=== PATIENT | female | born 1960 | race Caucasian/White ===

== ENCOUNTER 2019-01-25 07:25 | Day surgery (SDC) | payer BC, MEDICARE ==
[~2019-01-25 07:25] MED LIST: ACETAMINOPHEN 1,000 MG/100 ML BTL IVPB ONE; CEFAZOLIN 1 Gram 1 GM/50 ML BAG IVPB ONE; CEFAZOLIN 1G VIAL IVP ONE; CEFAZOLIN 2 Gram 2 GM/50 ML BAG IVPB ONE; FAMOTIDINE 20MG TABLET PO ONE; MECLIZINE 25 MG TABLET PO ONE; METOCLOPRAMIDE 10 MG TABLET PO ONE; WATER STERILE FOR INJECTION 20 ML VIAL MC ONE
[2019-01-25] MEDS ORDERED: KETAMINE HCL 100MG/1ML VIAL INJ ONE (07:26)
[2019-01-25] MEDS ORDERED: PROPOFOL 10 MG/ML VIAL IV ONE (07:26)
[2019-01-25] MEDS ORDERED: LIDOCAINE 2% MDV (20MG/ML) 20ML VIAL IV ONE (07:26)
[2019-01-25] MEDS ORDERED: DEXMEDETOMIDINE HCL 200 MCG/2 ML VIAL IV ONE (07:26)
[2019-01-25] MEDS ORDERED: LABETALOL HCL 5MG/ML, 20ML VIAL IV ONE (07:26)
[2019-01-25] MEDS ORDERED: GLYCOPYRROLATE 0.2 MG/ML ML IV ONE (07:26)
[2019-01-25] MEDS ORDERED: MIDAZOLAM HCL 2MG/2ML VIAL IV ONE (07:26)
[2019-01-25] MEDS ORDERED: HYDROMORPHONE PF 2MG/ML AMP 8 MG in 0.9 % SODIUM CHLORIDE 500ML 496 ML IV ONE (08:15)
[2019-01-25] MEDS ORDERED: HYDROMORPHONE PF 2MG/ML AMP 0.008 MG in 0.9 % SODIUM CHLORIDE 10ML VIA 0.996 ML IV ONE ×4 (08:15)
--- NOTE | 2019-01-25 08:27 | History and Physical - [place] ---
CHIEF COMPLAINT/HISTORY OF CHIEF COMPLAINT: This patient presents today with a history of a post lumbar laminectomy radiculopathy. Due to the failure of all therapies the patient presents today for an implanted spinal catheter infusion trial with Hydromorphone to determine if the implantation of a permanent pump would be of any value in pain control. PAST MEDICAL HISTORY: Hypertension and chronic pulmonary disease. PAST SURGICAL HISTORY: Bilateral knee replacement, shoulder surgery, lumbar spinal surgery, and foot surgery. MEDICATIONS ON ADMISSION: List to be provided. ALLERGIES: None. FAMILY/PSYCHOSOCIAL HISTORY: Social history - Noncontributory. Family history - Diabetes and coronary artery disease. SYSTEMS REVIEW: The patient is appropriate in no acute distress. The remainder of the systems review is positive for degenerative arthritis. PHYSICAL EXAMINATION: Height is not known and weight is estimated to be 250. Vital signs - Not available. HEENT: Within normal limits. LUNGS: Clear. HEART: Rapid and regular. ABDOMEN: Nontender. MUSCULOSKELETAL: Examination of the musculoskeletal system shows diffuse tenderness throughout the lumbar spine. Range of motion does produce pain moving into both lower extremities. There is pain extending into both legs. No motor or sensory abnormalities. NEUROLOGIC: Cranial nerves are intact. 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 PLAN: The patient is here for a implanted spinal catheter infusion trial of Hydromorphone to determine if the implantation of a permanent system can be of any value in pain control. The potential risks, side effects, and complications have all been carefully reviewed and discussed, the patient understands nerve root paralysis and spinal cord injury, and understands an epidural blood patch will be performed after the procedure to help prevent spinal headache, this will require laying flat for four, slowly elevated for one although we recommend an overnight stay, an outpatient status can be considered. She has been placed in contact with a clinical specialist from [facility] who has completely reviewed and discussed this procedure in detail. All questions were answered. JOB NUMBER: [id number] MTDD
[2019-01-25] MEDS ORDERED: RINGERS SOLUTION,LACTATED 1,000 ML IV ONE ×2 (08:30→10:14)
[2019-01-25] MEDS ORDERED: LIDOCAINE 1% W/EPI 1:100,000 MDV 20 ML VIAL SQ ONE ×2 (09:39)
[2019-01-25] MEDS ORDERED: BUPIVACAINE 0.5% W/EPI MPF 30 ML VIAL SQ ONE ×2 (09:39)
[2019-01-25] MEDS ORDERED: CEFAZOLIN 0.5 G in 0.9 % SODIUM CHLORIDE 1000ML 500 ML IVPB ONE (09:41)
[2019-01-25] MEDS ORDERED: CAFFEINE/SODIUM BENZOATE 250MG 500 MG in 0.9 % SODIUM CHLORIDE 100ML 100 ML IVPB ONE (11:21)
[2019-01-25] MEDS ORDERED: DIPHENHYDRAMINE HCL 50 MG/ML VIAL IVP PRN ×2 (11:30)
[2019-01-25] MEDS ORDERED: ACETAMINOPHEN 325 MG TAB PO PRN ×2 (11:30)
[2019-01-25] MEDS ORDERED: SENNOSIDES/DOCUSATE SODIUM UD CAPSULE PO PRN ×2 (11:30)
[2019-01-25] MEDS ORDERED: METOCLOPRAMIDE HCL 10 MG/2 ML VIAL IVP PRN (11:30)
[2019-01-25] MEDS ORDERED: HYDROMORPHONE HCL 2 MG/ML VIAL IM PRN ×2 (11:30)
[2019-01-25] MEDS ORDERED: METOCLOPRAMIDE 10 MG TABLET PO PRN (11:30)
[2019-01-25] MEDS ORDERED: HYDROCODONE/APAP 7.5/325MG TABLET PO PRN ×2 (11:30)
[2019-01-25] MEDS ORDERED: AL HYDROX/MAG HYDROX 30ML UD PO PRN (11:30)
[2019-01-25] MEDS ORDERED: TEMAZEPAM 15 MG CAPSULE PO PRN ×2 (11:30)
[2019-01-25] MEDS ORDERED: OXYCODONE/APAP 10MG-325MG TABLET PO PRN (11:30)
[2019-01-25] MEDS ORDERED: DIPHENHYDRAMINE HCL 25 MG CAPSULE PO PRN ×2 (11:30)
[2019-01-25] MEDS: RINGERS SOLUTION,LACTATED 1,000 ML IV SCH (13:38)
[2019-01-25] MEDS: OXYCODONE/APAP 10MG-325MG TABLET PO PRN ×3 (15:22→23:18)
[2019-01-25] MEDS: CEFAZOLIN 1G VIAL IVP SCH (17:12)
[2019-01-25] MEDS ORDERED: ROPINIROLE HCL 1 MG TABLET PO SCH (22:00)
[2019-01-26] MEDS: CEFAZOLIN 1G VIAL IVP SCH (01:09)
[2019-01-26] MEDS: OXYCODONE/APAP 10MG-325MG TABLET PO PRN (03:53)
[2019-01-26] MEDS ORDERED: PANTOPRAZOLE SODIUM 40 MG TABLET PO SCH (07:00)
[2019-01-26] MEDS ORDERED: CALCIUM CARBONATE 500 MG TAB.CHEW PO PRN (07:30)
[2019-01-26] MEDS: NALOXONE 0.4 MG/1 ML VIAL IVP PRN ×2 (08:12→10:07)
[2019-01-26] MEDS ORDERED: NALOXONE HCL 1 MG/ML SYR IVP ONE ×4 (08:14→09:05)
[2019-01-26] MEDS ORDERED: ONDANSETRON HCL IV 4 MG/2 ML VIAL IVP ONE (08:54)
[2019-01-26] MEDS ORDERED: NALOXONE HCL IV ONE ×2 (09:30→11:45)
[2019-01-26] MEDS ORDERED: SODIUM CHLORIDE 0.9% IV ONE ×2 (09:30→11:45)
[2019-01-26] MEDS ORDERED: CHLORTHALIDONE 25 MG TABLET PO SCH (10:00)
[2019-01-26] MEDS ORDERED: CITALOPRAM 20 MG TABLET PO SCH (10:00)
[2019-01-26] MEDS ORDERED: ATORVASTATIN 20 MG TABLET PO SCH (10:00)
[2019-01-26] MEDS ORDERED: AMLODIPINE BESYLATE 5MG TAB PO SCH (10:00)
[2019-01-26] MEDS ORDERED: QUINAPRIL HCL 10 MG TABLET PO SCH (10:00)
[2019-01-26] MEDS: RINGERS SOLUTION,LACTATED 1,000 ML IV SCH ×2 (10:07→10:33)
[2019-01-26 10:25] LABS: ABSOLUTE NEUTROPHIL COUNT 13.51; HEMATOCRIT 40.3 % (35.0-47.0); MEAN CELL VOLUME 91.8 fl (81-97); MEAN CORPUSCULAR HEMOGLOBIN 29.6 pg (27-33); MEAN CORPUSCULAR HGB CONC 32.3 g/dl (32-36); MEAN PLATELET VOLUME 9.5 fl (7.4-10.4); PLATELET COUNT 184 K/uL (130-400); RED BLOOD COUNT 4.39 M/uL (3.80-5.40); RED CELL DISTRIBUTION WIDTH 14.8 % (11.5-14.5); WHITE BLOOD COUNT W/O DIFF 15.8 K/uL (4.2-12.2)
[2019-01-26 10:34] LABS: BLOOD UREA NITROGEN 17 mg/dL (6-20); CREATININE 0.7 mg/dL (0.5-0.9); EST GLOMERULAR FILTRATION RATE > 60 mL/min
[2019-01-26 10:35] LABS: TOTAL PROTEIN 6.7 g/dL (6.6-8.7)
[2019-01-26 10:37] LABS: GLUCOSE,RANDOM 166 mg/dL (74-109)
[2019-01-26 10:39] LABS: ALT/SGPT 166 U/L (<33); AST/SGOT 228 U/L (10.0-35.0)
[2019-01-26 10:40] LABS: ALB/GLOB RATIO 1.5 (1.1-1.8); ALKALINE PHOSPHATASE 96 U/L (35-104)
--- NOTE | 2019-01-26 11:10 | Consult ---
Consult Order Detail - Reason for Consult Consult Date: 01/26/19 - Chief Complaint Chief Complaint: LUMBOSACRAL RADICULOPATHY HPI Consult - General Complaint: unresponsive - History of Present Illness Admitting Diagnosis: Lumbosacral Radiculopathy History of Present Illness: 58 year old female admitted to Dr. Gomez for trial of pain pump placement for treatment of chronic lumbar radiculopathy. No complications from the procedure, patient reported adequate pain control post-op. On the morning of 01/26/19 patient was found to be unarousable by nursing staff with snoring respirations. Patient had previously received 2 Percocet 2-3 hours prior to event. A rapid response was called. Patient was placed on a non- rebreather. BP 150/95, HR 96, RR 12, Pulse Ox 96% on 15L non-rebreather. PH 7.2, blood glucose 500. Patient received 2.4mg Narcan IVP and became arousable to vigorous stimulation. EKG obtained, shown to Dr. Valiente. An additional dose of 2mg Narcan was given 30 min later with similar response. Patient was started on Narcan drip at 1mg/hr, continued with oxygen via non- rebreather. Patient began to answer questions appropriately, able to follow simple commands. No complaints of pain. Received 10U Novolog SQ. Repeat ac cucheck 1 hour later 141. Patient continued with snoring respirations after stimulation had stopped. Chest xray, labs, and UA pending. Past medical history significant for hypertension, hyperlipidemia, GERD, RLS, and bilateral knee replacements. ROS Reviewed: No additional complaints except as noted below Constitutional: Reports: As per HPI Eyes: Reports: As per HPI - ENT ENT: Reports: As per HPI - Respiratory Respiratory: Reports: Other (shallow, snoring respirations) - Cardiovascular Cardiovascular: Reports: As per HPI - Endocrine Endocrine: Reports: As per HPI - Gastrointestinal Gastrointestinal: Reports: As per HPI - Genitourinary Genitourinary: Reports: As per HPI - Musculoskeletal Musculoskeletal: Reports: As per HPI - Skin Skin: Reports: As per HPI - Neurological Neurological: Reports: As per HPI, Confusion - Psychiatric Psychiatric: Reports: As per HPI - Hematological/Lymphatic Hematological/Lymphatic: Reports: As per HPI Past Medical History - SOCIAL HISTORY Smoking Status: Never smoker Alcohol Use: None - RESPIRATORY Hx Respiratory Disorders: Yes Hx Bronchitis: Yes (IN THE PAST) - CARDIOVASCULAR Hx Cardio Disorders: Yes Hx Hypertension: Yes (ON MEDS WITH GOOD CONTROL) - NEURO Hx Neuro Disorders: Yes Hx Neuropathy: Yes (FEET) - GI Hx GI Disorders: No - Hx Genitourinary Disorders: No - ENDOCRINE Hx Endocrine Disorders: No - MUSCULOSKELETAL Hx Musculoskeletal Disorders: Yes Hx Arthritis: Yes - PSYCH Hx Psych Problems: Yes Hx Anxiety: Yes - HEMATOLOGY/ONCOLOGY Hx Hematology/Oncology Disorders: No Family Medical History Any Significant Family History?: No H&P Meds - Home Medications and Allergies Allergies Allergy/AdvReac Type Severity Reaction Status Date / Time No Known Drug Allergies Allergy Verified 01/20/19 10:14 Physical Exam - Vital Signs Vital Signs: Vital Signs - Last 24 Hrs Temp Pulse Resp BP BP Pulse Ox 01/26/19 05:23 92 L 01/26/19 04:07 93 H 18 128/88 95 01/26/19 00:00 81 22 119/61 97 01/25/19 20:00 98.2 F 83 20 111/61 98 01/25/19 17:15 94 L 01/25/19 17:00 96.8 F L 61 18 105/56 90 L 01/25/19 14:20 79 18 99/51 94 L 01/25/19 13:20 74 18 107/68 92 L 01/25/19 12:50 73 18 100/45 93 L 01/25/19 12:20 73 18 94/55 95 01/25/19 12:05 72 16 91/46 95 01/25/19 11:50 73 16 92/31 90 L 01/25/19 11:35 97.3 F L 62 16 86/43 92 L 01/25/19 11:20 69 14 111/67 93 L 01/25/19 11:15 97.5 F L 68 14 94 L - General General Appearance: No acute distress, Other (arousable with vigorous stimulation) - Head Head exam: Atraumatic - Eye Eye exam: Normal appearance - ENT ENT exam: Normal exam, Mucous membranes moist - Respiratory Respiratory exam: Decreased breath sounds - Cardiovascular Cardiovascular Exam: Normal rhythm, Normal heart sounds, Tachycardia Peripheral Pulses: 2+: Radial (R), Radial (L), Dorsalis Pedis (R), Dorsalis Pedis (L) - GI/Abdominal GI/Abdominal exam: Soft. negative: Guarding, Rigid - Rectal Rectal exam: Deferred - exam: Deferred - Neurological Neurological exam: Altered - Skin Skin exam: Pallor Results - Labs Result Diagrams: 01/26/19 10:19 01/26/19 10:19 Labs Last 24 Hours: Laboratory Results - last 24 hr 01/26/19 01/26/19 10:19 10:19 WBC 15.8 H RBC 4.39 Hgb 13.0 Hct 40.3 MCV 91.8 MCH 29.6 MCHC 32.3 RDW 14.8 H Plt Count 184 MPV 9.5 Eosinophils % Not Reportable Basophils % Not Reportable Absolute Neutrophils 13.51 Sodium 144 Potassium 4.2 Chloride 103 Carbon Dioxide 30.0 H Anion Gap 11.0 BUN 17 Creatinine 0.7 Estimated GFR > 60 Random Glucose 166 H Calcium 9.0 Total Bilirubin 0.20 AST 228 H ALT 166 H Alkaline Phosphatase 96 Troponin T < 0.010 Total Protein 6.7 Albumin 4.0 Globulin 2.7 Albumin/Globulin Ratio 1.5 Assessment and Plan - Assessment and Plan (1) Altered level of consciousness Current Visit: Yes Status: Acute Base Code: R40.4 - TRANSIENT ALTERATION OF AWARENESS Comment: 01/26/19: -EKG: sinus tach -CXR: linear right-sided atelectasis, no pneumothorax -Head CT negative -UA: negative for infection -CBC unremarkable -Liver enzymes significantly elevated (2) Opiate overdose Current Visit: Yes Status: Acute Base Code: T40.601A - POISONING BY UNSP NARCOTICS, ACCIDENTAL, INIT Comment: 01/26/19: -Receiving Dilaudid via pump placement and Percocet 10/325 1-2 q6h prn -24 hour total dose of Dilaudid 0.12mg -Last percocet dose 0530 -Dilaudid pump turned off -Narcan drip currently at 2mg/hr -Arousable to stimulation -VS stable -Oxygen via NRB -CXR: linear atelectasis in perihilar and right lung regions, no pneumothorax (3) Hyperglycemia Current Visit: Yes Status: Acute Base Code: R73.9 - HYPERGLYCEMIA, UNSPECIFIED Comment: 01/26/19: -Blood sugar 424 at start of event -IV fluids and 10 units Novolog SQ given -Repeat accucheck 141 -Continue to monitor - Disposition Disposition: Transfer to [facility] due to poor response to Narcan and continued sedation, Dr. Dixon admitting.
[2019-01-26 12:48] LABS: URINE APPEARANCE CLEAR; URINE BILIRUBIN NEGATIVE (NEGATIVE); URINE BLOOD TRACE-I (NEGATIVE); URINE COLOR YELLOW; URINE KETONE NEGATIVE (NEGATIVE); URINE LEUKOCYTE ESTERASE NEGATIVE (NEGATIVE); URINE NITRITE NEGATIVE (NEGATIVE); URINE UROBILINOGEN 0.2 E.U./dL (0.20 - 1.00)
[2019-01-26 13:05] LABS: URINE AMORPHOUS SEDIMENT 2+; URINE BACTERIA NONE SEEN; URINE EPITHELIAL CELLS 16 - 20 (FEW); URINE HYALINE CAST 0-3 /lpf; URINE MUCUS LIGHT
[2019-01-26 15:45] LABS: ARTERIAL BLOOD GAS BASE EXCESS 2.2 mmol/L (-2 - 3); ARTERIAL BLOOD GAS HCO3 30.1 mmol/L (18-23); ARTERIAL BLOOD GAS PCO2 67.1 mmHg (35-48); ARTERIAL BLOOD GAS pH 7.27 (7.35-7.45)
[2019-01-26 15:47] LABS: ARTERIAL BLD GAS O2 SATURATION 95.8 % (95-98)
[2019-01-26 15:48] LABS: CARBOXYHEMOGLOBIN 5.6 % (0-1.5); O2 HEMOGLOBIN 94.1 % vol (94-99); TOTAL HEMOGLOBIN 11.6 g/dl (11.6-16)
[2019-01-26 15:49] LABS: ALLEN TEST PASS
--- NOTE | 2019-01-27 08:40 | Operative Note ---
DATE OF SURGERY: 01/25/2019 PREOPERATIVE DIAGNOSIS: Post lumbar laminectomy syndrome, ICD10 code M96.1, with radiculopathy, ICD10 code M54.16 and M54.17. OPERATION: 1. Fluoroscopic-guided access spinal space at L3-4, placement of thin-walled spinal catheter T11-12. 2. Diagnostic myelography with radiologic supervision and interpretation. 3. Bolus hydromorphone spinal space 0.0065 mg. 4. Incision, subcutaneous dissection, and anchoring of spinal catheter to supraspinous fascia using a Medtronic anchor and nonabsorbable suture. 5. Incision, subcutaneous dissection, and creation of subcutaneous pouch at left posterior gluteal margin and placement of pump identified as Medtronic 20 mL programmable. 6. Tunneling between midline pouch and left posterior pouch extending spinal catheter pouch. 7. Interface spinal catheter at pouch with connector and second catheter component. 8. Tunneling second catheter component 6 cm superior from pouch exiting skin interfaced external pump set to deliver hydromorphone at 0.12 mg a day. 9. Closure of incisions using 2-0 Vicryl for fascia and a running nylon for skin. 10. Epidural blood patch evaluated but not performed because of extensive spinal surgery and no access. 11. Placement of dressing securing catheter and all connections under sterile dressing. Patient transported to the recovery room stable, flat, pillow under head and knees, stable. No unusual side effects. Full functionality of extremities. SURGEON: Art Gomez DO ANESTHESIA: Local with sedation. ANESTHESIA PROVIDER: Yancy Starr INDICATIONS: This is a patient with a history of a decompression laminectomy 3-4-5-1, has extensive pain across the back into both legs. Due to the failure of therapy including the implanted spinal cord stimulator, the patient is here for an implanted spinal catheter infusion trial with hydromorphone to determine if the implantation of a permanent system can be of any value in pain control. PROCEDURE: Intravenous line, vital sign monitoring, IV sedation. Prepped and draped with sterile technique. Patient positioned prone. Sterile prep, sterile technique. Under imaging, the spinal interspace at L3-4 within the decompression laminectomy was marked and infiltrated. Using a 20-gauge 6-inch spinal needle paramedian approach level with the long axis, inserted into the spinal space. With the CSF flow, a thin-walled spinal catheter is advanced, positioned T11-12. The needle was advanced using AP and lateral imaging and placed into the spinal space lateral image with CSF flow noted. With the tip of the catheter at T11-12, diagnostic myelography was performed. The flow characteristics were appropriate for the space. No response on the part of the patient. A bolus of hydromorphone 0.0065 mg was given. CSF still coming form the catheter. Catheter clamped. The skin above and below the needle infiltrated, incision made, and subcutaneous dissection was conducted to the deep supraspinous fascia. The needle was removed and a purse-string suture had been placed to stop CSF leak around the catheter. An anchor was then advanced over the catheter once the needle was removed and then the anchor was secured to the supraspinous fascia with nonabsorbable suture using the anchor eyelets. A [id number] suture was then used to close the space around the entry point of the catheter. Antibiotic irrigation, Bovie for hemostasis. Catheter was then clamped. CSF was still noted. Diagnostic myelography was performed. The flow characteristics were approximately for the space. Smooth linear flow of contrast. Catheter tip identified straight and linear. With this confirmation of functionality, a bolus of hydromorphone 0.0065 mg given to spinal space. Catheter was then clamped. CSF still noted. At the left posterior gluteal margin site ultimately for the pump picked by the patient, skin infiltrated. Incision was made and subcutaneous dissection was conducted to form a small subcutaneous pouch. The midline permanent catheter was then extended into this pouch by a tunneling tool. This catheter was then resected and interfaced by way of connector with a second catheter component. This second catheter component was then tunneled from this location 6 cm superior exiting the skin. The external catheter was interfaced to an external pump which was set to deliver hydromorphone at 0.12 mg a day. Antibiotic irrigation and Bovie for hemostasis. The midline incision and the lateral incision were both closed using 2-0 Vicryl for fascia and a running nylon for skin. An epidural blood patch was considered but could not be performed because of the extensive spinal surgery. Dressing was placed securing the catheter. All connections under sterile dressing. She was transported to recovery room flat, pillow under head and knees. She will be kept flat for 4, slowly elevated for 1. She was receiving intravenous caffeine as a prophylactic measure to stop the headache. She will be kept overnight for observation, discharged in the morning. DISCHARGE INSTRUCTIONS: 1. The sites will remain clean and dry. No showering or bathing in any way that would disrupt dressings. If it happens, contact the clinic. 2. The office will contact the patient in 12-24 hours to set up a time in the next several days to come out for the first increase. Spinal opioid side effects including risk of depression, vomiting, constipation, retention, have all been discussed and reviewed. All other instructions were provided with numbers to contact if problems given. She will be discharged in the morning. CC: Dr. Art RODRIGUEZ
--- NOTE | 2019-01-27 14:58 | RADIOLOGY REPORT ---
EXAM: THORACOLUMBAR SPINE HISTORY: STATUS POST PAIN CATHETER IMPLANT. TECHNIQUE: A single frontal view of the thoracolumbar spine was obtained. Comparison: Intraoperative fluoroscopy 01/25/19. FINDINGS: A spinal stimulator device is seen with the generator superimposing the right iliac crest and leads extending into the lower thoracic region, lead markers superimposing the inferior T7 through mid T11 vertebral levels. An additional faint radiolucency catheter superimposes the left abdomen, possibly corresponding to clinically indicated pain pump. The catheter extends towards a cluster of coiled stimulator wires with the tip not well seen. Please refer to the operative report for additional details. Diffuse thoracic and lumbar degenerative finding with prominent bridging osteophytes in the lower thoracic and upper lumbar spine. IMPRESSION: ABOVE. JOB NUMBER: [id number] MTDD
--- NOTE | 2019-01-27 17:09 | RADIOLOGY REPORT ---
EXAM: CHEST 1 VIEW HISTORY: DIFFICULTY BREATHING, SHORTNESS OF BREATH, CONFUSION. TECHNIQUE: Portable AP view of the chest. COMPARISON: Spine radiograph, 01/25/2019. FINDINGS: Top normal cardiac silhouette size, likely accentuated by low inspiratory lung volumes. Linear opacities in the left perihilar region and medial right lung base. No pleural effusion. No pneumothorax. IMPRESSION: 1. LOW INSPIRATORY LUNG VOLUME. 2. SUGGESTION OF LINEAR ATELECTASIS IN THE LEFT PERIHILAR AND MEDIAL RIGHT LUNG BASE REGIONS. JOB NUMBER: [id number] MTDD
--- NOTE | 2019-01-27 19:34 | CT SCAN REPORT ---
EXAM: CT SCAN HEAD WO CONTRAST HISTORY: TRANSIENT ALTERATION OF CONSCIOUSNESS. TECHNIQUE: Helical CT scan of the head obtained without intravenous contrast. HAND DOMINANCE: Unknown. COMPARISON: None. FINDINGS: No evidence of hemorrhage, extraaxial fluid collection, or major vessel infarction. Borges-white matter differentiation is maintained. Ventricles are normal. Basal cisterns are patent. No mass effect or midline shift. Calvarium is intact. Paranasal sinuses and middle ear cavities are well aerated. IMPRESSION: NO ACUTE INTRACRANIAL ABNORMALITIES. JOB NUMBER: [id number] [facility]
== END 2019-01-26 19:20 | disposition short-term general hospital (02) ==
LOC: SUR 07:25 → MEDSURG 11:50 → SUR 01-26 19:20
PROVIDERS: ATTEND Pain Medicine Interventional Pain Medicine
DX: M96.1 Postlaminectomy syndrome, not elsewhere classified (principal); M54.16 Radiculopathy, lumbar region; M54.17 Radiculopathy, lumbosacral region; I10 Essential (primary) hypertension; E78.00 Pure hypercholesterolemia, unspecified; G25.81 Restless legs syndrome; G47.33 Obstructive sleep apnea (adult) (pediatric); E66.01 Morbid (severe) obesity due to excess calories
CPT/HCPCS: 62362; 62350; 01936; 82947; 82800; 82375; 80051; 80053; 81001; 82803; 84484; 85002; 85027; 71045; 72020; 70450; 36600; 94762 ×2; 93005; 93010; Q9967; J2405; J3490 ×3; J1170; J0690; J1200; J2310; J7030; J7040; J7120

== ENCOUNTER 2019-02-07 04:53 | Observation (INO) | payer BC ==
[2019-02-07] MEDS ORDERED: LEVOFLOXACIN 500MG IVPB 500 MG/100 ML BAG IVPB SCH (05:30)
[2019-02-07] MEDS: HYDROCODONE/APAP 10/325 TABLET PO PRN ×2 (05:49→09:45)
[2019-02-07] MEDS ORDERED: FAMOTIDINE 20MG TABLET PO ONE ×2 (07:16→12:00)
[2019-02-07] MEDS ORDERED: RINGERS SOLUTION,LACTATED 1,000 ML IV ONE ×2 (07:16→14:14)
[2019-02-07] MEDS ORDERED: METOCLOPRAMIDE 10 MG TABLET PO ONE ×2 (07:17→12:00)
[2019-02-07] MEDS ORDERED: ACETAMINOPHEN 1,000 MG/100 ML BTL IVPB ONE ×2 (07:19→12:00)
[2019-02-07] MEDS ORDERED: CEFAZOLIN 1G VIAL IVP ONE ×2 (09:00→14:03)
[2019-02-07] MEDS ORDERED: CITALOPRAM 20 MG TABLET PO SCH (10:00)
[2019-02-07] MEDS ORDERED: QUINAPRIL HCL 10 MG TABLET PO SCH (10:00)
[2019-02-07] MEDS ORDERED: AMLODIPINE BESYLATE 5MG TAB PO SCH (10:00)
[2019-02-07] MEDS ORDERED: CHLORTHALIDONE 25 MG TABLET PO SCH (10:00)
[2019-02-07] MEDS ORDERED: CEFAZOLIN 2 Gram 2 GM/50 ML BAG IVPB ONE (12:00)
[2019-02-07] MEDS ORDERED: CEFAZOLIN 1 Gram 1 GM/50 ML BAG IVPB ONE (12:30)
[2019-02-07] MEDS ORDERED: BUPIVACAINE 0.5% W/EPI MPF 30 ML VIAL SQ ONE (14:03)
[2019-02-07] MEDS ORDERED: LIDOCAINE 1% W/EPI 1:200,000 MPF 30ML SQ ONE (14:03)
[2019-02-07] MEDS ORDERED: CAFFEINE/SODIUM BENZOATE 250MG 500 MG in 0.9 % SODIUM CHLORIDE 100ML 100 ML IVPB ONE (14:27)
[2019-02-07] MEDS ORDERED: LIDOCAINE 2% MDV (20MG/ML) 20ML VIAL IV ONE (18:52)
[2019-02-07] MEDS ORDERED: MIDAZOLAM HCL 2MG/2ML VIAL IV ONE (18:52)
[2019-02-07] MEDS ORDERED: FLUMAZENIL 1MG/10ML VIAL IV ONE (18:52)
[2019-02-07] MEDS ORDERED: GLYCOPYRROLATE 0.2 MG/ML ML IV ONE (18:52)
[2019-02-07] MEDS ORDERED: KETAMINE HCL 100MG/1ML VIAL INJ ONE (18:52)
[2019-02-07] MEDS ORDERED: ATORVASTATIN 20 MG TABLET PO SCH (22:00)
[2019-02-07] MEDS ORDERED: ROPINIROLE HCL 1 MG TABLET PO SCH (22:00)
[2019-02-08] MEDS ORDERED: PANTOPRAZOLE SODIUM 40 MG TABLET PO SCH (07:00)
--- NOTE | 2019-02-10 07:40 | Operative Note ---
DATE OF SURGERY: 02/07/2019 PREOPERATIVE DIAGNOSES: 1. Post lumbar laminectomy syndrome ICD-10 code M96.1 with radiculopathy. ICD- 10 code M54.16 and M54.17. 2. Implanted spinal catheter opioid infusion trial hydromorphone. 3. Catheter fracture and breakdown, here for removal of the system. OPERATION: 1. Fluoroscopic-guided incision subcutaneous dissection and removal of internal spinal catheter midline incision. Aerobic and anaerobic cultures taken, CSF 1.5 to 2 mL taken from spinal catheter in spinal space for culture and sensitivity. 2. Incision subcutaneous dissection removal of intermediate catheter left flank, aerobic and anaerobic cultures taken from incision, interfaced between external and internal catheter removed. External catheter removed intact. Midline spinal catheter removed intact, pursestring suture placed to stop CSF leak. Antibiotic irrigation. 3. Incisions were closed using Vicryl for fascia, alejandra for skin. Op-Site dressing placed. SURGEON: Art Gomez D.O. ANESTHESIA: Local sedation. ANESTHESIA PROVIDER: Eliu Breen CRNA INDICATION: This patient with a history of intractable radiculopathy, had an implanted spinal catheter infusion trial with hydromorphone. There were initial problems with O2 saturations, requiring hospitalizations at [facility] for monitoring and Narcan use. The patient was discharged to home. During that period of time she was seen in the office. The external catheter and external pump was intact. Over the last 24 hours, she presented to [facility], indicating that the external catheter pump caught on a handle and pulled the catheter apart. She was transferred to [facility] for removal of the internal catheter. PROCEDURE: Intravenous line, vital sign monitoring, IV sedation by anesthesia. The patient positioned prone. The external catheter, which had been clamped by an umbilical catheter, was identified. The site was inspected, it was intact, there was no obvious infection. A sterile prep and sterile technique and artery imaging. The midline incision and the left flank incision both closed with a running nylon noted. Using a sterile technique, local was infiltrated into both incisions. The nylon suture was cut. The midline incision and the flank incision were then both cultured aerobic and anaerobically. The midline incision was opened. The spinal catheter identified, cut, and then a 25 gauge 5 inch needle was inserted into the catheter end, which was in the spinal canal and 1.5 mL of CSF was aspirated through the catheter, placed into a culture tube, which would be submitted for culture and sensitivity of the CSF. The catheter was clamped to stop any further CSF leak. The anchor was noted, the suture cut. A pursestring suture was placed around the penetration point of the spinal catheter. The suture was removed and then the catheter and the anchor were removed from the spinal space, slowly pulling, tightening the pursestring suture to stop CSF leak. The radiopaque bead or tip of the catheter identified. The catheter was removed intact. Imaging confirmed. At the left flank pouch site where the internal and external catheter junction was noted under imaging. Dissection into the catheter pouch was performed. The anchor interface was removed. The external catheter cut and removed by pulling away from the incision. The remaining part of the internal catheter removed intact. Aerobic and anaerobic cultures have been taken. Antibiotic irrigation, Bovie hemostasis. Both incisions were then closed using a 2-0 for fascia and alejandra for the skin. Op-Site dressing placed. Imaging was used to confirm all catheter components had been removed. She was then transported to the recovery room stable. She had no side effects previously. She was not noted to have any spinal headache before going into the room. She was not demonstrating any spinal headache at this point. She wanted to be discharged to home. DISCHARGE INSTRUCTIONS: 1. She will be kept for 4 hours and monitored with pulse oximetry. If stable, she will be considered dischargeable. 2. Standard medications resumed. A prescription for Novato 7.5/325 has been written, maximum 5 a day. The antibiotic Levaquin 500 mg once a day x14 days will be called by the hospital. 3. Office to contact the patient in the next 12 to 24 hours and set up a time in 7 to 10 days for us to evaluate the sites. Until then, she is to keep the incisions clean and dry, no showering or bathing in any way that would disrupt the dressings or alejandra. 4. Any side effects will be called to the office. She will call the emergency room with any urgent situation or needs. All the other instructions provided. She will be monitored here in the hospital carefully before considered dischargeable. CC: [facility] Pablo Herron [facility]
--- NOTE | 2019-02-10 11:20 | History and Physical Report ---
DATE OF ADMISSION: 02/06/2019 CHIEF COMPLAINT/HISTORY OF CHIEF COMPLAINT: This is a patient with a previous history of an implanted spinal catheter infusion trial hydromorphone who had the trial discontinued after a hospital admission to [facility] for respiratory complications. She was scheduled later this week for the pump catheter removal. She presented to the emergency room at [facility] in the evening on 02/06/2019 after indicating that the external catheter had caught on a door or door handle pulling the catheter apart. She initially presented to [facility] with a catheter which had been violated and some leak in CSF. She was then shipped here to [facility] where she was evaluated in the emergency room. The catheter, by way of my instruction to the emergency room physician at [facility], had been clamped. The catheter dressing was still in place. She was admitted to have the implanted catheter removed. Her initial presentation seemed to be appropriate. She was in no acute distress and was not demonstrating any spinal headache. The plan was to have this patient admitted, taken to surgery, and the catheter removed. MEDICAL HISTORY: Hypertension, chronic pulmonary disease. CURRENT MEDICATIONS: 1. Celexa. 2. Requip. 3. Amlodipine. 4. Quinapril. 5. Lipitor. 6. Vitamin supplementation. 7. Omeprazole. 8. Chlorthalide. FAMILY HISTORY: Diabetes, coronary artery disease. IMPRESSION: Intractable lumbar radiculopathy, ICD10 code M54.16 and M54.17, secondary to postlaminectomy syndrome, ICD10 code M96.1, with compromised external spinal catheter interfaced to implanted spinal catheter. PLAN: She is here for admission, stabilization, and removal of the catheter on the subsequent day. [facility]
--- NOTE | 2019-02-14 08:30 | Discharge Summary ---
DATE OF DISCHARGE: 02/07/2019 This patient was admitted to the hospital from the emergency room after an external component to an implanted catheter had been violated, and she was presenting for removal of the device. Her examination at the time showed that the external catheter interfaced to an external infusion pump had been torn or broken. It had been clamped through the emergency room at [facility] upon her presentation to the [facility] Emergency Room. Her procedure performed during this hospitalization was the surgical removal of the implanted catheter and external components. During this procedure, cultures were taken of CSF as well as 2 incisional pouches; one at the midline for the spinal catheter and the other a small pouch at the flank which represented the interface point between the external and internal catheter. Her condition at the time of discharge was stable. She was doing well showing no side effects. She was afebrile and she was placed on appropriate antibiotic therapy. DISCHARGE INSTRUCTIONS: 1. The patient was provided with the appropriate antibiotic which she will take as directed. 2. The office will contact the patient in the next 24-48 hours and set up a time in the next 7-10 days for us to evaluate the sites and remove the alejandra from her surgery. 3. Any side effects will be reported to the office or go to local emergency room. All other instructions provided and numbers to contact if problems given. She was discharged stable with a family member. There were no indications of compromise or infection. JENNIFER
== END 2019-02-07 18:53 | disposition home or self-care (01) ==
LOC: INTOOBSV 04:53 → MEDSURG 04:53
PROVIDERS: ADMIT Pain Medicine Interventional Pain Medicine; ATTEND Pain Medicine Interventional Pain Medicine
DX: M54.16 Radiculopathy, lumbar region (principal); M54.17 Radiculopathy, lumbosacral region; T85.610A Breakdown (mechanical) of cranial or spinal infusion catheter, initial encounter; I10 Essential (primary) hypertension; E78.00 Pure hypercholesterolemia, unspecified; G25.81 Restless legs syndrome; G47.33 Obstructive sleep apnea (adult) (pediatric); E66.01 Morbid (severe) obesity due to excess calories; B96.89 Other specified bacterial agents as the cause of diseases classified elsewhere; B95.1 Streptococcus, group B, as the cause of diseases classified elsewhere
CPT/HCPCS: 62355; 00300; 87070 ×2; 93005; G0378; J0690 ×2; J3490 ×3; J1956; J7120